=== PATIENT | female | born 1970 | race African-American/Black ===

== ENCOUNTER 2016-07-31 15:29 | Inpatient (IN) | payer MEDICAID ==
[2016-07-30 22:00] VITALS: BP 144/91
[~2016-07-31] VITALS: Ht 157.5 cm; Wt 112.0 kg
[2016-07-31 16:56] LABS: Urine Bilirubin Negative (Negative); Urine Color Yellow (Yellow); Urine Glucose Normal (Normal); Urine Ketone Negative (Negative); Urine Mucus FEW (None Seen); Urine Nitrite Negative (Negative); Urine RBC 80 /hpf (0 - 4); Urine Squamous Epithelial Cell MANY /hpf (<5); Urine Urobilinogen Normal (Negative)
[2016-07-31 16:57] LABS: Urine Blood 1+ /uL (Negative)
[2016-07-31 16:58] LABS: Urine Trichomonas FEW (None Seen)
[2016-07-31 17:09] LABS: Basophils # (auto) 0 uL; Basophils % (auto) 0.2 % (0.0-2.0); CONDITION AutoValidated; Eosinophils # (auto) 0.1 uL; Eosinophils % (auto) 1.1 % (0.0-7.0); Hematocrit 38.2 % (36.0-46.0); Hemoglobin 12.7 g/dL (12.2-16.2); Lymphocytes # (auto) 1.8 uL; Lymphocytes % (auto) 15.6 % (10.0-50.0); Mean Corpuscular Hemoglobin 27.7 pg (28.0-32.0); Mean Corpuscular Hgb Conc. 33.2 g/dL (32.0-36.0); Mean Corpuscular Volume 83.5 fL (80.0-100.0); Mean Platelet Volume 7.9 fL (7.4-10.4); Monocytes # (auto) 0.5 uL; Monocytes % (auto) 4.3 % (0.0-12.0); Neutrophils # (auto) 8.9 uL; Neutrophils % (auto) 78.8 % (37.0-80.0); Platelet Count (auto) 328 10^3/uL (140-450); Red Cell Distribution Width 14.3 % (11.6-16.0); White Blood Cell 11.3 10^3/uL (4.4-10.8)
[2016-07-31 17:13] LABS: Albumin 3.6 g/dL (3.4-5.0); BUN/Creatinine Ratio 12.7; Bilirubin, Total 0.3 mg/dL (0.2-1.0); Calcium 8.3 mg/dL (8.5-10.1); Potassium 4.1 mmol/L (3.5-5.1); Total Protein 7.7 g/dL (6.4-8.2)
[2016-07-31] MEDS ORDERED: cefTRIAXone SOD 1,000 MG VL IM ONE (20:00)
[2016-07-31] MEDS ORDERED: KETOROLAC TROMETH 30 MG/ML 1ML VIAL IV ONE (20:00)
[2016-07-31] MEDS ORDERED: SODIUM CHLORIDE 0.9% 1,000 ML IV ONE ×2 (20:00→21:00)
[2016-07-31] MEDS ORDERED: TAMSULOSIN HYDROCHLORIDE 0.4 MG CAP PO ONE (20:00)
[2016-07-31] MEDS ORDERED: cefTRIAXone 1GM/50ML D5W 50 ML IV ONE (20:00)
[2016-07-31] MEDS ORDERED: ONDANSETRON HCL 4 MG/2 ML VIAL IV PRN (21:00)
[2016-07-31 21:30] VITALS: BP 144/91
[2016-07-31] MEDS ORDERED: MANNITOL FTV 25% 12.5 GM/50 ML 50 ML IV ONE (22:00)
[2016-07-31] MEDS: MORPHINE SULF INJ 2 MG/ML SYRINGE 1ML IV PRN (23:29)
[2016-08-01 05:00] VITALS: BP 125/76
[2016-08-01 06:16] LABS: Basophils # (auto) 0 uL; Basophils % (auto) 0.4 % (0.0-2.0); CONDITION AutoValidated; Eosinophils # (auto) 0.1 uL; Eosinophils % (auto) 1.4 % (0.0-7.0); Hematocrit 31.5 % (36.0-46.0); Hemoglobin 10.6 g/dL (12.2-16.2); Lymphocytes % (auto) 23.7 % (10.0-50.0); Mean Corpuscular Hemoglobin 28.1 pg (28.0-32.0); Mean Corpuscular Hgb Conc. 33.5 g/dL (32.0-36.0); Mean Corpuscular Volume 83.8 fL (80.0-100.0); Monocytes # (auto) 0.5 uL; Monocytes % (auto) 6.2 % (0.0-12.0); Neutrophils # (auto) 5.7 uL; Neutrophils % (auto) 68.3 % (37.0-80.0); Platelet Count (auto) 257 10^3/uL (140-450); Red Cell Distribution Width 13.8 % (11.6-16.0); White Blood Cell 8.3 10^3/uL (4.4-10.8)
[2016-08-01] MEDS: MORPHINE SULF INJ 2 MG/ML SYRINGE 1ML IV PRN ×3 (06:23→15:15)
[2016-08-01] MEDS ORDERED: METF-370 PO (06:38)
[2016-08-01] MEDS ORDERED: SPIR25TA89 PO (06:38)
[2016-08-01] MEDS ORDERED: METO-159 PO (06:38)
[2016-08-01] MEDS ORDERED: FURO40TA PO (06:38)
[2016-08-01] MEDS ORDERED: GLIP-115 PO (06:38)
[2016-08-01] MEDS ORDERED: NIFE90TA30 PO (06:38)
[2016-08-01 06:41] LABS: Albumin 2.7 g/dL (3.4-5.0); BUN/Creatinine Ratio 15.1; Calcium 7.3 mg/dL (8.5-10.1); Potassium 3.9 mmol/L (3.5-5.1)
[2016-08-01 06:44] LABS: Bilirubin, Total 0.2 mg/dL (0.2-1.0)
[2016-08-01 08:41] VITALS: BP 125/75
[2016-08-01] MEDS: cefTRIAXone 1GM/50ML D5W 50 ML IV SCH (09:41)
[2016-08-01 13:33] VITALS: BP 132/79
[2016-08-01 16:52] VITALS: BP 151/96
[2016-08-01] MEDS ORDERED: FUROSEMIDE 20 MG TAB PO ONE (18:00)
[2016-08-01] MEDS ORDERED: TAMSULOSIN HYDROCHLORIDE 0.4 MG CAP PO SCH (18:00)
[2016-08-01] MEDS: HYDROcodone-ACET 5/325MG TAB PO PRN (18:10)
[2016-08-01 21:31] VITALS: BP 137/79
[2016-08-02] MEDS: HYDROcodone-ACET 5/325MG TAB PO PRN ×2 (00:56→08:21)
[2016-08-02 05:00] VITALS: BP 131/78
[2016-08-02 05:38] LABS: Basophils # (auto) 0 uL; Basophils % (auto) 0.3 % (0.0-2.0); CONDITION AutoValidated; Eosinophils # (auto) 0.1 uL; Eosinophils % (auto) 1.6 % (0.0-7.0); Hematocrit 32.1 % (36.0-46.0); Hemoglobin 10.6 g/dL (12.2-16.2); Lymphocytes # (auto) 1.8 uL; Lymphocytes % (auto) 24.7 % (10.0-50.0); Mean Corpuscular Hgb Conc. 32.9 g/dL (32.0-36.0); Mean Corpuscular Volume 85.1 fL (80.0-100.0); Mean Platelet Volume 8.2 fL (7.4-10.4); Monocytes # (auto) 0.4 uL; Monocytes % (auto) 5.4 % (0.0-12.0); Platelet Count (auto) 241 10^3/uL (140-450); Red Cell Distribution Width 14.3 % (11.6-16.0); White Blood Cell 7.4 10^3/uL (4.4-10.8)
[2016-08-02 05:55] LABS: Albumin 2.8 g/dL (3.4-5.0); Bilirubin, Total 0.2 mg/dL (0.2-1.0); Calcium 7.8 mg/dL (8.5-10.1)
[2016-08-02] MEDS: cefTRIAXone 1GM/50ML D5W 50 ML IV SCH (08:22)
[2016-08-02] MEDS ORDERED: FUROSEMIDE 20 MG TAB PO SCH (10:00)
== END 2016-08-02 14:00 | disposition home or self-care (01) | DRG 465 ==
LOC: ER 15:32 → OVERFLOW 15:33 → CENTRAL 21:30
PROVIDERS: ADMIT Internal Medicine; ATTEND Internal Medicine
DX: N20.0 Calculus of kidney (principal); N39.0 Urinary tract infection, site not specified; I10 Essential (primary) hypertension; E11.9 Type 2 diabetes mellitus without complications; Z87.442 Personal history of urinary calculi; Z90.49 Acquired absence of other specified parts of digestive tract; Z88.1 Allergy status to other antibiotic agents; Z90.710 Acquired absence of both cervix and uterus; Z90.89 Acquired absence of other organs; Z71.89 Other specified counseling
CPT/HCPCS: 36415; 74176; 80053; 81001; 83605; 85025; 87086; 96365; 96375; J0696

== ENCOUNTER 2017-06-19 11:25 | Emergency (ER) | payer MEDICAID ==
[~2017-06-19] VITALS: Ht 157.5 cm; Wt 109.3 kg
[~2017-06-19 11:25] MED LIST: FURO40TA PO; GLIP-115 PO; METF-370 PO; METO-159 PO; NIFE90TA30 PO; SPIR25TA89 PO
[2017-06-19 12:10] LABS: Basophils # (auto) 0.1 uL; Eosinophils # (auto) 0.1 uL; Monocytes # (auto) 0.5 uL; Monocytes % (auto) 5.5 % (0.0-12.0); White Blood Cell 9.8 10^3/uL (4.4-10.8)
[2017-06-19 12:13] LABS: Basophils % (auto) 0.5 % (0.0-2.0); Eosinophils % (auto) 0.8 % (0.0-7.0); Hematocrit 41.4 % (36.0-46.0); Hemoglobin 13.5 g/dL (12.2-16.2); Lymphocytes % (auto) 19.9 % (10.0-50.0); Mean Corpuscular Hemoglobin 27.1 pg (28.0-32.0); Mean Corpuscular Hgb Conc. 32.6 g/dL (32.0-36.0); Neutrophils # (auto) 7.2 uL; Neutrophils % (auto) 73.3 % (37.0-80.0); Nucleated Red Blood Cells % 0.2 %; Platelet Count (auto) 306 10^3/uL (140-450); Red Cell Distribution Width 14.7 % (11.8-14.3)
[2017-06-19 12:41] LABS: Alanine Aminotransferase 15 U/L (13-56); Albumin 3.7 g/dL (3.4-5.0); Alkaline Phosphatase 63 U/L (45-117); Anion Gap 11 (5-15); Aspartate Aminotransferase 9 U/L (15-37); BUN/Creatinine Ratio 10.6; Bilirubin, Total 0.3 mg/dL (0.2-1.0); Blood Urea Nitrogen 13 mg/dL (7-18); Calcium 8.6 mg/dL (8.5-10.1); Carbon Dioxide 26 mmol/L (21-32); Chloride 100 mmol/L (98-107); GFR African American 60 mL/min; GFR Non-African American 50 mL/min; Glucose 177 mg/dL (74-106); Potassium 3.8 mmol/L (3.5-5.1); Sodium 137 mmol/L (136-145); Total Protein 8.2 g/dL (6.4-8.2)
[2017-06-19 12:50] LABS: Urine Bacteria FEW /hpf (None Seen); Urine Blood TRACE /uL (Negative); Urine Specific Gravity 1.018 (1.001-1.035); Urine WBC 8 /hpf (0 - 5)
[2017-06-19 14:23] VITALS: BP 143/92
== END 2017-06-19 14:25 | disposition home or self-care (01) ==
LOC: ER 11:30
DX: R06.02 Shortness of breath (principal); N39.0 Urinary tract infection, site not specified; E11.22 Type 2 diabetes mellitus with diabetic chronic kidney disease; I12.9 Hypertensive chronic kidney disease with stage 1 through stage 4 chronic kidney disease, or unspecified chronic kidney disease; N18.9 Chronic kidney disease, unspecified; Z90.710 Acquired absence of both cervix and uterus
CPT/HCPCS: 36415; 71046; 80053; 81001; 84484; 85025; 85379; 93005

== ENCOUNTER 2024-09-20 06:28 | Day surgery (SDC) | payer MEDICAID ==
[~2024-09-20] VITALS: Ht 157.5 cm; Wt 85.3 kg
[2024-09-20] VITALS (8 sets, daily range): BP systolic 136–156; BP diastolic 81–93; PULSE 66–71; RESP 11–16; TEMP 97.8; O2SAT 92–98
[~2024-09-20 06:28] MED LIST changes: +ASPI1TAB19 PO; +ATOR20TA PO; +ERGO1CAP23 PO; +FURO1TAB31 PO; -FURO40TA PO; -GLIP-115 PO; +LOSA-535 PO; +MAGN1TAB32 PO; -METF-370 PO; +METO-158 PO; -METO-159 PO; -NIFE90TA30 PO; +NIFE90TA75 PO; +RIME75TA PO; +SEMA2INJ3 SC; -SPIR25TA89 PO
[2024-09-20] MEDS: IODIXANOL 320MG/ML 100ML BTL IV ONE (07:14)
[2024-09-20] MEDS: VERAPAMIL 2.5MG/ML INJ 2ML VIAL IV ONE (07:37)
[2024-09-20] MEDS: HEPARIN SODIUM (PORCINE) 5000 UNITS/ML 1ML VIAL ONE (07:37)
[2024-09-20] MEDS: ANGIOMAX 250 MG VIAL IV ONE (07:37)
[2024-09-20] MEDS: fentaNYL CITRATE 100 MCG/2 ML VL ONE (07:38)
[2024-09-20] MEDS: LIDOCAINE 2%HCL (LOCAL ANESTH.) INJ 20ML MDV ONE (07:39)
[2024-09-20] MEDS: SODIUM CHL 0.9% 50 ML ONE (07:39)
[2024-09-20] MEDS: MIDAZOLAM HCL 2MG/2ML 2ml VIAL (1mg/ml) ONE (07:39)
[2024-09-20] MEDS: CLOPIDOGREL BISULFATE 75 MG TAB ONE (09:13)
--- NOTE | 2024-09-20 09:14 | DVHOP2 ---
Operative Report Procedures performed: Left heart catheterization and bilateral coronary angiogram PCI (drug-eluting stent deployment) off distal LCX Moderate sedation lasting 45 minutes Diagnosis: One-vessel coronary artery disease Status post PCI/drug-eluting stent deployment of distal LCx Preserved left ventricular systolic function: LVEF of 55% with somehow increased LVEDP (18 mm Hg) Cardiac suggestions for management: Dual antiplatelet therapy (loaded with aspirin/Plavix) for at least one year High potency statin, beta blockers and JUDY inhibitors versus ARB Optimized medical therapy Lifestyle and risk factor modifications was advised Findings: LVEF: 55% LVEDP: 18 mm Hg There was no transaortic valve pressure gradient LAD: LAD was coming off the left main. It provided a large 1st diagonal and small-sized 2nd diagonal. LAD throughout its course revealed mild diffuse disease. First diagonal revealed mild disease. Ramus intermedius: It was a very small vessel with no angiographic evidence of disease and came off the left main. LCX: LCX came off the left main. It was codominant and provided a large sized left posterolateral branch. OM1 was a large bifurcating vessel. Distal LCX had 80% focal lesion. Left posterolateral branch was a large sized vessel with minimal disease. Other portions of the LCX and branches revealed minor luminal irregularities. RCA: RCA was coming off the right sinus of Valsalva. It was codominant and provided RPDA. Proximal and mid RCA had mild disease. Other portions of RCA and branches revealed minor luminal irregularities. Presentation: Patient is a 54-year-old female who presented to the office with dyspnea on exertion and chest discomfort. Past medical history includes CKD, hypertension, diabetes mellitus, DJD, obstructive sleep apnea on CPAP, seizure disorder, hyperlipidemia and obesity. Nuclear stress test of April 2024 was abnormal. Echocardiogram of August 2024 revealed ejection fraction of 65-70%, mild MR/TR, minimal mitral valve prolapse and right ventricular systolic pressure less than 35 mm Hg. Patient was sent for cardiac catheterization. Procedure: After obtaining informed consent, the patient was brought to laboratory development technician. She was prepped and draped in sterile fashion. Right radial artery was used for access site. 1 mg of Versed and 50 mcg of fentanyl were used for moderate sedation which lasted more than 45 minutes. Using Seldinger technique, the right radial artery was accessed and a six [place] slender sheath was inserted into it. 2.5 mg of verapamil and 100 mcg of nitroglycerin were given as a cocktail into radial sheath. A five [place] tiger four diagnostic catheter was used to perform left heart catheterization (obtaining pressures and performing left ventriculography) and right coronary angiography. A six [place] XB 3.5 guiding catheter was used to access the left coronary system. We did identify significant lesion in distal LCX. As the LCX itself was codominant and provided a large posterolateral branch, decision was made to proceed with intervention. Patient was started on Angiomax. A run-through wire was used to cross the lesion. A 2.5 x 10 compliant balloon was used for pre dilatation. At this point we decided to proceed with with deploying a stent. A 2.75 x 15 drug- eluting stent was deployed across the lesion. A 2.75 x 10 noncompliant balloon was used for postdilatation. It is of note that prior to intervention, JUAN flow into LCX and branches was JUAN three flow. Post intervention JUAN flow remained JUAN three flow. Post intervention, remaining disease in LCX was 5%. Patient tolerated procedure with no complication. There was no dissection/hematoma/perforation. Right radial artery access site was managed by deploying a TR band. Fluoroscopy time: 15.4 minutes contrast: 75 mL of LEOLA Maldonado MD Sep 20, 2024 09:14
== END 2024-09-20 11:35 | disposition home or self-care (01) ==
LOC: CATH 06:28
PROVIDERS: ATTEND Internal Medicine Cardiovascular Disease
DX: I25.10 Atherosclerotic heart disease of native coronary artery without angina pectoris (principal); E11.22 Type 2 diabetes mellitus with diabetic chronic kidney disease; E66.9 Obesity, unspecified; E78.5 Hyperlipidemia, unspecified; G47.33 Obstructive sleep apnea (adult) (pediatric); I12.9 Hypertensive chronic kidney disease with stage 1 through stage 4 chronic kidney disease, or unspecified chronic kidney disease; N18.9 Chronic kidney disease, unspecified; I34.1 Nonrheumatic mitral (valve) prolapse; G40.909 Epilepsy, unspecified, not intractable, without status epilepticus; R94.39 Abnormal result of other cardiovascular function study; R06.09 Other forms of dyspnea; R07.89 Other chest pain; Z79.899 Other long term (current) drug therapy; Z98.890 Other specified postprocedural states
CPT/HCPCS: 93458; C1725; C1769; C1874; C1887; C1894; C9600; J0583; J1644; J2250; J3010; Q9967; 99152; 99153